=== PATIENT | female | born 1960 | race Caucasian/White ===

== ENCOUNTER 2017-04-10 17:18 | Inpatient (IN) | payer OTHER ==
[~2017-04-10] VITALS: Ht 157.5 cm; Wt 47.2 kg
[~2017-04-10 17:18] MED LIST: CLONAZEPAM1 MG PO; DESYREL 150 MG150 MG PO; DESYREL100 MG PO; LYRICA100 MG PO; MIRTAZAPINE7.5 MG PO; ZOFRAN4 MG PO
[2017-04-10 18:18] LABS: BASOPHIL (%) 0.8 % (0-1); BASOPHIL COUNT 0.1 K/uL (0-0.1); EOSINOPHIL (%) 0.3 % (0-5); HEMATOCRIT 38.8 % (36.0-46.0); HEMOGLOBIN 12.9 G/DL (11.9-15.5); IMMATURE GRANULOCYTE (%) 0.5 % (0.0-0.7); LYMPHOCYTE (%) 20.2 % (15-42); LYMPHOCYTE COUNT 1.3 K/uL (1.0-2.8); MCH 30.4 PG (29.0-34.0); MCHC 33.2 G/DL (30.0-36.0); MCV 91.5 FL (83-99); MONOCYTE (%) 11.5 % (3-12); MONOCYTE COUNT 0.7 K/uL (0-0.8); NEUTROPHIL (%) 66.7 % (45-76); NEUTROPHIL COUNT 4.1 K/uL (1.8-6.4); PLATELET COUNT 151 K/uL (156-360); RBC DIS.WIDTH-CV 12.5 % (11.8-14.6); RBC DIS.WIDTH-SD 41.5 % (39-53); RED BLOOD COUNT 4.24 M/uL (3.80-5.20); WHITE BLOOD COUNT 6.2 K/uL (4.1-10.2)
[2017-04-10 18:27] LABS: ALBUMIN 3.7 g/dL (3.2-4.8); CHLORIDE 105 mEq/L (99-109); POTASSIUM 3.5 mEq/L (3.7-5.4); SODIUM 140 mEq/L (136-147)
[2017-04-10 18:29] LABS: GLUCOSE 98 mg/dL (70-99); TOTAL PROTEIN 6.3 g/dL (6.4-8.3)
[2017-04-10 18:31] LABS: TOTAL BILIRUBIN 0.3 mg/dL (0.0-1.0)
[2017-04-10 18:33] LABS: ALKALINE PHOSPHATASE 77 IU/L (3-129); CREATININE 0.8 mg/dL (0.6-1.3); GFR ESTIMATE (CALCULATED) > 59 mL/min/
[2017-04-10 18:34] LABS: UREA NITROGEN (BUN) 12 mg/dL (9-23)
[2017-04-10 18:35] LABS: AST (GOT) 19 IU/L (2-34)
[2017-04-10 18:36] LABS: ALT (GPT) 16 IU/L (3-49)
[2017-04-10] MEDS ORDERED: LEXAPRO20 MG PO (20:12)
[2017-04-10] MEDS ORDERED: FLEXERIL5 MG PO (20:12)
[2017-04-10] MEDS ORDERED: NICODERM CQ1 EAC2 TD (20:13)
[2017-04-10] MEDS ORDERED: ADVIL200 MG PO (20:13)
[2017-04-10 23:09] VITALS: BP 113/58
[2017-04-11 00:02] LABS: PREALBUMIN 14.9 mg/dL (10-40)
[2017-04-11 04:42] VITALS: BP 101/63
[2017-04-11 05:36] LABS: HEMOGLOBIN 11.4 G/DL (11.9-15.5); MCH 30.2 PG (29.0-34.0); MCHC 32.6 G/DL (30.0-36.0); MCV 92.6 FL (83-99); PLATELET COUNT 139 K/uL (156-360); RBC DIS.WIDTH-CV 12.6 % (11.8-14.6); RBC DIS.WIDTH-SD 42.8 % (39-53); RED BLOOD COUNT 3.78 M/uL (3.80-5.20); WHITE BLOOD COUNT 3.2 K/uL (4.1-10.2)
[2017-04-11 06:12] VITALS: BP 105/54
[2017-04-11 06:19] LABS: ALBUMIN 3.3 G/DL (3.2-4.8); ALKALINE PHOSPHATASE 65 IU/L (3-129); ALT (GPT) 12 IU/L (3-49); AST (GOT) 14 IU/L (2-34); CHLORIDE 112 MEQ/L (99-109); CREATININE 0.5 MG/DL (0.6-1.3); GFR ESTIMATE (CALCULATED) > 59 mL/min/; SODIUM 145 MEQ/L (136-147); TOTAL BILIRUBIN 0.2 MG/DL (0.0-1.0); TOTAL PROTEIN 5.5 G/DL (6.4-8.3); UREA NITROGEN (BUN) 13 mg/dL (9-23)
[2017-04-11 06:34] LABS: GLUCOSE 152 mg/dL (70-99); POTASSIUM 4.4 MEQ/L (3.7-5.4)
[2017-04-11 08:39] LABS: THYROTROPIN (TSH) 0.95 MIU/L (0.4-5.5)
[2017-04-11 12:00] VITALS: BP 114/58
[2017-04-11 16:43] VITALS: BP 119/58
[2017-04-11 19:35] LABS: BASE EXCESS 0.1 mEq/L (-3 to +3); BICARBONATE 23.5 mEq/L (22-26); CARBOXY HGB 1.5 % (0-5); METHEMOGLOBIN 1.5 % (0-1.5); PCO2 33 mm Hg (35-45); PO2 55 mm Hg (80-100); pH 7.46 (7.35-7.45)
[2017-04-11 19:36] LABS: COMMENTS - BLOOD GASES A+C+; DEVICE NC; O2 FLOW 2 L/MIN; SITE RB
[2017-04-11 20:00] VITALS: BP 113/55
[2017-04-11 22:46] LABS: BASOPHIL (%) 0.1 % (0-1); EOSINOPHIL (%) 0 % (0-5); HEMATOCRIT 33.5 % (36.0-46.0); HEMOGLOBIN 11.4 G/DL (11.9-15.5); IMMATURE GRANULOCYTE (%) 0.7 % (0.0-0.7); LYMPHOCYTE (%) 9.4 % (15-42); LYMPHOCYTE COUNT 1.2 K/uL (1.0-2.8); MCH 31.1 PG (29.0-34.0); MCV 91.3 FL (83-99); MONOCYTE (%) 6.6 % (3-12); MONOCYTE COUNT 0.8 K/uL (0-0.8); NEUTROPHIL (%) 83.2 % (45-76); NEUTROPHIL COUNT 10.4 K/uL (1.8-6.4); PLATELET COUNT 150 K/uL (156-360); RBC DIS.WIDTH-CV 12.7 % (11.8-14.6); RBC DIS.WIDTH-SD 42.6 % (39-53); RED BLOOD COUNT 3.67 M/uL (3.80-5.20); WHITE BLOOD COUNT 12.5 K/uL (4.1-10.2)
[2017-04-12] VITALS (8 sets, daily range): BP systolic 102–134; BP diastolic 58–71
[2017-04-12 05:35] LABS: BASOPHIL (%) 0.1 % (0-1); EOSINOPHIL (%) 0 % (0-5); HEMATOCRIT 33.6 % (36.0-46.0); HEMOGLOBIN 10.8 G/DL (11.9-15.5); IMMATURE GRANULOCYTE (%) 0.7 % (0.0-0.7); LYMPHOCYTE (%) 9.4 % (15-42); LYMPHOCYTE COUNT 1.1 K/uL (1.0-2.8); MCH 29.6 PG (29.0-34.0); MCHC 32.1 G/DL (30.0-36.0); MCV 92.1 FL (83-99); MONOCYTE (%) 5.4 % (3-12); MONOCYTE COUNT 0.7 K/uL (0-0.8); NEUTROPHIL (%) 84.4 % (45-76); NEUTROPHIL COUNT 10.1 K/uL (1.8-6.4); PLATELET COUNT 156 K/uL (156-360); RBC DIS.WIDTH-CV 12.9 % (11.8-14.6); RBC DIS.WIDTH-SD 43.5 % (39-53); RED BLOOD COUNT 3.65 M/uL (3.80-5.20)
[2017-04-12 06:34] LABS: ALKALINE PHOSPHATASE 58 IU/L (3-129); ALT (GPT) 11 IU/L (3-49); AST (GOT) 12 IU/L (2-34); CHLORIDE 112 MEQ/L (99-109); CREATININE 0.6 MG/DL (0.6-1.3); DIRECT BILIRUBIN 0.1 mg/dL (0.0-0.3); GFR ESTIMATE (CALCULATED) > 59 mL/min/; GLUCOSE 141 mg/dL (70-99); POTASSIUM 3.7 MEQ/L (3.7-5.4); SODIUM 144 MEQ/L (136-147); TOTAL BILIRUBIN 0.2 MG/DL (0.0-1.0); TOTAL PROTEIN 5.3 G/DL (6.4-8.3); UREA NITROGEN (BUN) 12 mg/dL (9-23)
[2017-04-12 09:56] LABS: HEMOGLOBIN A1c (GLYCOHEMOGLOB) 5.5 % (Below 5.7)
[2017-04-13 04:15] VITALS: BP 116/60
[2017-04-13 11:10] VITALS: BP 114/60
[2017-04-13 11:49] VITALS: BP 119/63
[2017-04-13 16:18] VITALS: BP 132/68
[2017-04-13 23:40] VITALS: BP 116/61
[2017-04-14 04:40] VITALS: BP 112/64
[2017-04-14 08:26] VITALS: BP 111/56
[2017-04-14 10:06] LABS: HEMATOCRIT 35.3 % (36.0-46.0); HEMOGLOBIN 11.5 G/DL (11.9-15.5); MCH 30.3 PG (29.0-34.0); MCHC 32.6 G/DL (30.0-36.0); MCV 92.9 FL (83-99); RBC DIS.WIDTH-CV 13.1 % (11.8-14.6); RBC DIS.WIDTH-SD 45.3 % (39-53); WHITE BLOOD COUNT 9.6 K/uL (4.1-10.2)
[2017-04-14 10:12] LABS: PLATELET COUNT 223 K/uL (156-360)
[2017-04-14 10:16] LABS: CHLORIDE 110 MEQ/L (99-109); CREATININE 0.6 MG/DL (0.6-1.3); GFR ESTIMATE (CALCULATED) > 59 mL/min/; GLUCOSE 118 mg/dL (70-99); POTASSIUM 3.7 MEQ/L (3.7-5.4); SODIUM 145 MEQ/L (136-147); UREA NITROGEN (BUN) 16 mg/dL (9-23)
[2017-04-14 11:31] VITALS: BP 140/78
[2017-04-14 16:08] VITALS: BP 128/65
[2017-04-14 23:25] VITALS: BP 114/56
[2017-04-15 03:46] VITALS: BP 125/61
[2017-04-15 07:30] VITALS: BP 115/60
[2017-04-15] MEDS ORDERED: CEFTIN500 MG PO (11:04)
[2017-04-15] MEDS ORDERED: PREDNISONE10 MG PO (11:04)
[2017-04-15] MEDS ORDERED: ADVAIR HFA120 INHALA IH (11:04)
[2017-04-15] MEDS ORDERED: BENZONATATE100 MG PO (11:04)
[2017-04-15] MEDS ORDERED: CLONAZEPAM1 MG PO (11:04)
[2017-04-15] MEDS ORDERED: SPIRIVA RESPIMAT4 GM IH (11:04)
[2017-04-15] MEDS ORDERED: MUCINEX600 MG PO (11:04)
[2017-04-15 11:56] VITALS: BP 155/84
== END 2017-04-15 15:23 | DRG 190 ==
LOC: EME 17:18 → EDOF 21:34 → ENRESERV 21:37 → 5WEST 22:36
PROVIDERS: Hospitalist; Internal Medicine; Physician Assistant; Physician Assistant Medical
DX: J44.1 Chronic obstructive pulmonary disease with (acute) exacerbation (principal); J96.01 Acute respiratory failure with hypoxia; J20.9 Acute bronchitis, unspecified; E46 Unspecified protein-calorie malnutrition; J44.0 Chronic obstructive pulmonary disease with (acute) lower respiratory infection; F17.210 Nicotine dependence, cigarettes, uncomplicated; E87.6 Hypokalemia; Z68.1 Body mass index [BMI] 19.9 or less, adult; F33.1 Major depressive disorder, recurrent, moderate; F41.1 Generalized anxiety disorder; R42 Dizziness and giddiness; R29.6 Repeated falls; F41.8 Other specified anxiety disorders; K21.9 Gastro-esophageal reflux disease without esophagitis; M79.7 Fibromyalgia; W01.0XXA Fall on same level from slipping, tripping and stumbling without subsequent striking against object, initial encounter; Y92.238 Other place in hospital as the place of occurrence of the external cause; Z91.81 History of falling; Z80.3 Family history of malignant neoplasm of breast; Z82.49 Family history of ischemic heart disease and other diseases of the circulatory system
CPT/HCPCS: 36600; 70450; 71046; 71111; 71275; 73501; 73522; 73610; 80048; 80053; 80076; 82803; 83036; 83605; 84134; 84443; 85025; 85027; 87040; 87070; 87205; 87502; 94640; 94640 76; 94799; 97530 GP; 99202; 99281; 99285; G0378; J0295; J1200; J1644; J1885; J2920; J2930; J7030; J7050; J7644

== ENCOUNTER 2017-09-16 11:57 | Inpatient (IN) | payer OTHER ==
[~2017-09-16] VITALS: Ht 157.5 cm; Wt 50.2 kg
[~2017-09-16 11:57] MED LIST changes: +ADVAIR HFA120 INHALA IH; +ADVIL200 MG PO; +BENZONATATE100 MG PO; +CEFTIN500 MG PO; +FLEXERIL5 MG PO; +LEXAPRO20 MG PO; +MUCINEX600 MG PO; +NICODERM CQ1 EAC2 TD; +PREDNISONE10 MG PO; +SPIRIVA RESPIMAT4 GM IH
[2017-09-16 12:44] LABS: HEMATOCRIT 38.1 % (36.0-46.0); HEMOGLOBIN 13.1 G/DL (11.9-15.5); MCHC 34.4 G/DL (30.0-36.0); MCV 90.1 FL (83-99); PLATELET COUNT 176 K/uL (156-360); RBC DIS.WIDTH-CV 11.7 % (11.8-14.6); RBC DIS.WIDTH-SD 38.2 % (39-53); RED BLOOD COUNT 4.23 M/uL (3.80-5.20)
[2017-09-16 12:55] LABS: ALBUMIN 4.1 g/dL (3.2-4.8); CHLORIDE 104 mEq/L (99-109); POTASSIUM 3.5 mEq/L (3.7-5.4); SODIUM 139 mEq/L (136-147)
[2017-09-16 12:57] LABS: GLUCOSE 111 mg/dL (70-99); TOTAL PROTEIN 6.6 g/dL (6.4-8.3)
[2017-09-16 12:59] LABS: TOTAL BILIRUBIN 0.3 mg/dL (0.0-1.0)
[2017-09-16 13:00] LABS: SERUM ETHYL ALCOHOL < 10 mg/dL
[2017-09-16 13:01] LABS: ALKALINE PHOSPHATASE 81 IU/L (3-129); CREATININE 0.8 mg/dL (0.6-1.3); GFR ESTIMATE (CALCULATED) > 59 mL/min/
[2017-09-16 13:02] LABS: UREA NITROGEN (BUN) 8 mg/dL (9-23)
[2017-09-16 13:03] LABS: AST (GOT) 15 IU/L (2-34)
[2017-09-16 13:04] LABS: ALT (GPT) 9 IU/L (3-49)
[2017-09-16 13:05] LABS: TROP-I INTERPRETATION NEGATIVE; TROPONIN-I < 0.01 ng/mL (0.0-0.30)
[2017-09-16 13:38] LABS: APPEARANCE SL.HAZY ((CLEAR)); BILIRUBIN NEGATIVE; BLOOD SMALL; COLOR YELLOW ((YELLOW)); GLUCOSE (STRIP) NEGATIVE; KETONES NEGATIVE; LEUKOCYTES NEGATIVE; NITRITE NEGATIVE; PROTEIN (STRIP) NEGATIVE; SPECIFIC GRAVITY 1.019 (1.000-1.030)
[2017-09-16 13:42] LABS: BACTERIA RARE /HPF; CALCIUM OXALATE CRYSTALS 2+ /HPF; EPITHELIAL CELLS 1+ /HPF; MUCUS TRACE /LPF; UCUL ADDED? NO; WHITE BLOOD CELLS 0-5 /HPF (0-5)
[2017-09-16 13:47] LABS: AMPHETAMINE NEGATIVE (500 ng/mL); BARBITURATES NEGATIVE (200 ng/mL); BENZODIAZEPINES NEGATIVE (150 ng/mL); BUPRENORPHINE NEGATIVE (10 ng/mL); COCAINE NEGATIVE (150 ng/mL); METHADONE NEGATIVE (200 ng/mL); METHAMPHETAMINE NEGATIVE (500 ng/mL); OPIATES (MORPHINE) NEGATIVE (100 ng/mL); OXYCODONE NEGATIVE (100 ng/mL); PHENCYCLIDINE NEGATIVE (25 ng/mL); PROPOXYPHENE NEGATIVE (300 ng/mL); THC CANNABINOIDS NEGATIVE (50 ng/mL); TRICYCLIC ANTIDEPRESSANTS NEGATIVE (300 ng/mL)
[2017-09-16 20:03] VITALS: BP 110/65
[2017-09-16 20:25] VITALS: BP 110/65
[2017-09-17 07:42] VITALS: BP 98/56
[2017-09-17] MEDS ORDERED: WELLBUTRIN XL150 MG PO (10:14)
[2017-09-17 11:41] LABS: FOLIC ACID (FOLATE) 14.2 NG/ML (5.0-22.0)
[2017-09-17 16:16] VITALS: BP 119/80
[2017-09-18 07:39] VITALS: BP 84/50
[2017-09-18 15:01] VITALS: BP 118/63
[2017-09-19 07:51] VITALS: BP 115/56
[2017-09-19 15:14] VITALS: BP 112/66
[2017-09-20 07:51] VITALS: BP 105/67
[2017-09-20 15:52] VITALS: BP 122/53
[2017-09-21 07:59] VITALS: BP 122/65
[2017-09-21 16:02] VITALS: BP 111/65
[2017-09-22 07:42] VITALS: BP 106/58
[2017-09-22 08:23] LABS: HEMATOCRIT 36.2 % (36.0-46.0); HEMOGLOBIN 11.9 G/DL (11.9-15.5); MCH 30.1 PG (29.0-34.0); MCHC 32.9 G/DL (30.0-36.0); MCV 91.6 FL (83-99); PLATELET COUNT 175 K/uL (156-360); RBC DIS.WIDTH-SD 40.4 % (39-53); RED BLOOD COUNT 3.95 M/uL (3.80-5.20); WHITE BLOOD COUNT 5.3 K/uL (4.1-10.2)
[2017-09-22 08:40] LABS: PTT 29.5 SEC (25-37)
[2017-09-22 08:45] LABS: ALBUMIN 3.6 G/DL (3.2-4.8); ALKALINE PHOSPHATASE 52 IU/L (3-129); ALT (GPT) 8 IU/L (3-49); AST (GOT) 13 IU/L (2-34); CHLORIDE 108 MEQ/L (99-109); CREATININE 0.7 MG/DL (0.6-1.3); GFR ESTIMATE (CALCULATED) > 59 mL/min/; GLUCOSE 97 mg/dL (70-99); SODIUM 142 MEQ/L (136-147); TOTAL BILIRUBIN 0.3 MG/DL (0.0-1.0); TOTAL PROTEIN 5.6 G/DL (6.4-8.3)
[2017-09-22 08:48] LABS: UREA NITROGEN (BUN) 22 mg/dL (9-23)
[2017-09-22 12:33] LABS: APPEARANCE CLEAR ((CLEAR)); BILIRUBIN NEGATIVE; BLOOD NEGATIVE; COLOR YELLOW ((YELLOW)); GLUCOSE (STRIP) NEGATIVE; KETONES NEGATIVE; LEUKOCYTES NEGATIVE; NITRITE NEGATIVE; PROTEIN (STRIP) NEGATIVE; SPECIFIC GRAVITY 1.021 (1.000-1.030); UCUL ADDED? NO; UROBILINOGEN 0.2 MG/DL (0.2-1.0)
[2017-09-22 15:30] VITALS: BP 114/60
[2017-09-23 07:24] VITALS: BP 110/69
[2017-09-23 14:39] VITALS: BP 103/61
[2017-09-24 08:02] VITALS: BP 102/51
[2017-09-24 16:49] VITALS: BP 97/53
[2017-09-25 08:19] VITALS: BP 99/56
[2017-09-25 15:59] VITALS: BP 93/50
[2017-09-26 08:04] VITALS: BP 121/62
[2017-09-26 15:45] VITALS: BP 100/57
[2017-09-27 07:28] VITALS: BP 112/55
[2017-09-27 16:09] VITALS: BP 114/57
[2017-09-28 07:51] VITALS: BP 114/62
[2017-09-28] MEDS ORDERED: VENLAFAXINE HC150 M1 PO (09:02)
[2017-09-28] MEDS ORDERED: TRAZODONE HCL100 MG PO (09:02)
[2017-09-28] MEDS ORDERED: ARIPIPRAZOLE5 MG PO (09:02)
[2017-09-28] MEDS ORDERED: TRAMADOL HCL50 MG PO (09:02)
[2017-09-28] MEDS ORDERED: DOCUSATE SODIU100 MG PO (09:03)
[2017-09-28 16:00] VITALS: BP 111/59
== END 2017-09-28 17:30 | disposition home or self-care (01) | DRG 885 ==
LOC: EME 11:57 → 1WEST 13:46 → EDOF 13:46 → ENRESERV 19:00 → 1WEST 19:45
PROVIDERS: Emergency Medicine; Hospitalist; Psychiatry & Neurology Psychiatry
DX: F33.2 Major depressive disorder, recurrent severe without psychotic features (principal); F41.1 Generalized anxiety disorder; J44.9 Chronic obstructive pulmonary disease, unspecified; F17.200 Nicotine dependence, unspecified, uncomplicated; F41.9 Anxiety disorder, unspecified; M50.30 Other cervical disc degeneration, unspecified cervical region; K21.9 Gastro-esophageal reflux disease without esophagitis; S70.02XA Contusion of left hip, initial encounter; W18.30XA Fall on same level, unspecified, initial encounter; I10 Essential (primary) hypertension; G47.00 Insomnia, unspecified; M54.40 Lumbago with sciatica, unspecified side; M54.10 Radiculopathy, site unspecified; Z88.2 Allergy status to sulfonamides; G89.29 Other chronic pain; F51.5 Nightmare disorder; Z90.49 Acquired absence of other specified parts of digestive tract; M79.7 Fibromyalgia
CPT/HCPCS: 70450; 71045; 72100; 73502; 73560; 73721; 80053; 81003; 82306; 82607; 82746; 84484; 85027; 85610; 85730; 87086; 90839; 93005; 94640; 94640 76; 94799; 97150 GO; 97166 GO; 99211 TC; 99281; 99285; G0480; J1885